=== PATIENT | female | born 1995 | race Caucasian/White ===

== ENCOUNTER 2017-06-12 14:46 | Emergency (ER) | payer OTHER | END 2017-06-12 17:27 | LOC: ER 14:46 | DX: F32.9 Major depressive disorder, single episode, unspecified (principal); F17.210 Nicotine dependence, cigarettes, uncomplicated; F12.10 Cannabis abuse, uncomplicated ==

== ENCOUNTER 2017-07-22 16:05 | Emergency (ER) | payer OTHER ==
[~2017-07-22] VITALS: Ht 170.2 cm; Wt 56.7 kg
[2017-07-22 16:33] LABS: URINE BILIRUBIN NEGATIVE (Negative); URINE BLOOD NEGATIVE (Negative); URINE COLOR YELLOW; URINE GLUCOSE-RANDOM* NEGATIVE (Negative); URINE KETONES NEGATIVE (Negative); URINE NITRITE NEGATIVE (Negative); URINE PROTEIN (DIPSTICK) NEGATIVE (Negative); URINE SPECIFIC GRAVITY >= 1.030 (1.003-1.035)
[2017-07-22 16:40] LABS: AMP/METHAMP POSITIVE (Negative); BARBITURATES Negative (Negative); BENZODIAZEPINES Negative (Negative); COCAINE Negative (Negative); METHADONE Negative (Negative); OPIATES Negative (Negative); PCP Negative (Negative); THC Negative (Negative)
[2017-07-22 16:48] LABS: CASTS None Seen /LPF (None Seen); CRYSTALS None Seen /LPF (None Seen); SQUAMOUS 4-10 Moderate /LPF (0-3); URINE RBC 0-2 Rare /HPF (0-2); URINE WBC 6-15 Few /HPF (0-5)
[2017-07-22 17:48] LABS: ABSOLUTE NEUTROPHILS 4.5 thou/uL (1.4-8.2); BASOPHILS 0.6 % (0.0-2.0); EOSINOPHILS 3.3 % (0.0-3.0); HEMATOCRIT 38.5 % (37.0-47.0); HEMOGLOBIN 12.9 gm/dL (12.0-15.0); LYMPHOCYTES 35.2 % (24.0-44.0); MANUAL DIFF NO; MCHC 33.5 g/dL (28.0-37.0); MCV 86.7 fL (80.0-100.0); PLATELET COUNT 354 thou/uL (150-400); POLYS 55.9 % (36.0-66.0); RBC 4.44 mil/uL (4.20-5.00)
[2017-07-22 17:57] LABS: ANION GAP 5 mmol/L (7-16); BUN 16 mg/dL (7-18); CHLORIDE 104 mmol/L (98-107); CO2 32 mmol/L (21-32); CREATININE 0.8 mg/dL (0.6-1.0); GLUCOSE 87 mg/dL (74-106); POTASSIUM 3.5 mmol/L (3.5-5.1); SODIUM 141 mmol/L (136-145)
[2017-07-22 18:03] LABS: ACETAMINOPHEN < 2 ug/mL (10-30); ALBUMIN 3.8 g/dL (3.4-5.0); ALKALINE PHOSPHATASE 69 U/L (46-116); SALICYLATE < 2.8 mg/dL (2.8-20.0); SGOT 16 U/L (15-37); SGPT 20 U/L (30-65); TOTAL BILIRUBIN 0.4 mg/dL (<0.1-1.0); TOTAL PROTEIN 7.5 g/dL (6.4-8.2)
[2017-07-22 20:25] VITALS: BP 106/63
== END 2017-07-22 20:25 | disposition home or self-care (01) ==
LOC: ER 16:05
PROVIDERS: Physician Assistant
DX: F15.10 Other stimulant abuse, uncomplicated (principal); F20.9 Schizophrenia, unspecified; J45.909 Unspecified asthma, uncomplicated; F17.210 Nicotine dependence, cigarettes, uncomplicated; Z91.14 Patient's other noncompliance with medication regimen

== ENCOUNTER 2017-07-24 10:57 | Emergency (ER) | payer OTHER ==
[~2017-07-24] VITALS: Ht 172.7 cm; Wt 59.0 kg
[2017-07-24 10:59] VITALS: BP 113/68
== END 2017-07-24 11:38 | disposition home or self-care (01) ==
LOC: ER 10:57
DX: R45.1 Restlessness and agitation (principal); J45.909 Unspecified asthma, uncomplicated; F17.210 Nicotine dependence, cigarettes, uncomplicated

== ENCOUNTER 2017-07-24 13:43 | Emergency (ER) | payer OTHER ==
[~2017-07-24] VITALS: Ht 172.7 cm; Wt 61.2 kg
--- NOTE | ~2017-07-24 | EKG ---
[address] [address] ELECTROCARDIOGRAM REPORT Name: ELENA SHARMA Room #: DEP Klaudia#: [id number] Admission: 07/24/17 Attend Phys: Discharge: 07/24/17 Date of : [birth year] Report #: [id number] THIS REPORT FOR: //name// [facility] ED Test Date: 2017-07-24 Test Time: 14:49:29 Pat Name: ELENA SHARMA Department: Room: Gender: F Installer Apprentice: : 1995 Requested By: Juan Jose King Order Number: [id number] MD: Reginaldo Brady Measurements Intervals Effort Rate: 82 P: 60 VA: 142 QRS: 60 QRSD: 88 T: 31 QT: 364 QTc: 425 Interpretive Statements Sinus rhythm No previous ECG available for comparison Electronically Signed On 07-24-2017 23:30:33 CDT by Reginaldo Brady [email or web address] <ELECTRONICALLY SIGNED> By: Reginaldo Brady MD 07/24/17 2330 1449 1449 Reginaldo Brady MD /KYREE
[2017-07-24 15:03] LABS: HEMATOCRIT 36.9 % (37.0-47.0); HEMOGLOBIN 12.6 gm/dL (12.0-15.0); MCH 29.4 pg (26.0-34.0); MCHC 34.1 g/dL (28.0-37.0); RBC 4.29 mil/uL (4.20-5.00); RDW 12.8 % (10.5-14.5); WBC 8.3 thou/uL (4.0-11.0)
[2017-07-24 15:10] LABS: CALCIUM 8.6 mg/dL (8.5-10.1); CREATININE 0.8 mg/dL (0.6-1.0); POTASSIUM 3.7 mmol/L (3.5-5.1)
[2017-07-24 17:07] VITALS: BP 101/49
== END 2017-07-24 17:13 | disposition home or self-care (01) ==
LOC: ER 13:43
PROVIDERS: Emergency Medicine
DX: R53.83 Other fatigue (principal); J45.909 Unspecified asthma, uncomplicated; F17.210 Nicotine dependence, cigarettes, uncomplicated

== ENCOUNTER 2019-08-17 10:18 | Emergency (ER) | payer OTHER ==
[~2019-08-17] VITALS: Ht 170.2 cm; Wt 61.2 kg
--- NOTE | ~2019-08-17 | EMS ---
[facility] [address] [place] [address] EMS Patient Care Report Name: ELENA SHARMA Room #: REG LAURIE Rudolph#: [id number] Admission: 08/17/19 Attend Phys: Discharge: Date of : [birth year] Report #: [id number] THIS REPORT FOR: //name// Report Transmitted: 08/17/2019 11:32 EMS Care Summary [place], [place]/[facility] Incident [id number] @ 08/17/2019 10:03 Incident Location [address] / [address] [place] [address] Patient IRVIN LOPEZ Female, 24 Years 1995 Patient Address [address] [place] [address] Patient History Asthma,Substance Abuse,Schizophrenia, Patient Allergies No known allergies, Patient Medications None Reported, Chief Complaint NO COMPLAINT. USED METH EARLIER Disposition Transported No Lights/[place] Dispatch Reason Overdose/Poisoning/Ingestion Transported To [facility] Narrative PT FOUND STANDING ON SIDEWALK WITH [facility]. PT STATES SHE USED SOME METH EARLIER AND DOES OT TAKE HER SCHIZOPHRENIC MEDS. PT DENIES ANY COMPLAINT AND JUST WANTS TO BE CHECKED OUT. TRANSPORTED WITHOUT INCIDENT. [facility] [address] [place] [address] EMS Patient Care Report Name: ELENA SHARMA Room #: REG LAURIE Rudolph#: [id number] Admission: 08/17/19 Attend Phys: Discharge: Date of : [birth year] Report #: [id number] Initial Vitals @10:12P: 99,R: 18,BP: 127/88,Pain: 0/10,GCS: 15,CO: 0,SpO2: 100,Revised Trauma: 12, Assessments @10:10MENTAL:No Abnormalities,SKIN:No Abnormalities,HEENT:Head/Face: No Abnormalities,Eyes: No Abnormalities,Neck/Airway: No Abnormalities,LUNG SOUNDS:ABDOMEN:PELVIS//GI:EXTREMITIES:PULSE:NEURO:No Abnormalities, Impression No Complaints or Injury/Illness Noted Procedures @10:10ALS AssessmentResponse: UnchangedSucceeded Timeline 10:02,Call Received 10:02,Dispatch Notified 10:03,Dispatched 10:04,En Route 10:09,On Scene 10:10,At Patient 10:10,ALS Assessment,Response: UnchangedSucceeded, 10:12,BP: 127/88 M,PULSE: 99,RR: 18 R,SPO2: 100 Ox,ETCO2: ,BG: ,PAIN: 0,GCS: 15, 10:13,Depart Scene 10:16,At Destination 10:35,Call Closed Disclaimer [email or web address] Copyright 2019 [employer] This EMS Care Summary contains data elements from the applicable legal record (which may be displayed differently). It is designed to provide pertinent information for the following purposes: continuity of care, clinical quality, and state data reporting. The complete legal record is available to ED staff and administrators of the receiving hospital in [employer] Patient Tracker. All data is provided "as is."
[2019-08-17 11:43] LABS: AMP/METHAMP POSITIVE (Negative); BARBITURATES Negative (Negative); BENZODIAZEPINES Negative (Negative); COCAINE Negative (Negative); METHADONE Negative (Negative); OPIATES Negative (Negative); PCP Negative (Negative)
[2019-08-17 11:49] VITALS: BP 104/61
== END 2019-08-17 12:45 | disposition home or self-care (01) ==
LOC: ER 10:18
PROVIDERS: Emergency Medicine
DX: F15.129 Other stimulant abuse with intoxication, unspecified (principal); F31.9 Bipolar disorder, unspecified; F20.9 Schizophrenia, unspecified; J45.909 Unspecified asthma, uncomplicated; F17.210 Nicotine dependence, cigarettes, uncomplicated